=== PATIENT | male | born 1985 | race Caucasian/White ===

== ENCOUNTER 2017-05-07 21:41 | Emergency (ER) | payer MEDICAID ==
[~2017-05-07] VITALS: Ht 172.7 cm; Wt 123.0 kg
[2017-05-07] MEDS ORDERED: KETOROLAC 60MG/2ML VIAL IM ONE (22:00)
[2017-05-08 01:14] VITALS: BP 147/93
== END 2017-05-08 01:16 | disposition home or self-care (01) ==
LOC: ER 22:15
DX: M79.671 Pain in right foot (principal); M25.571 Pain in right ankle and joints of right foot
CPT/HCPCS: 73610; 73630; 96372; 99284; J1885

== ENCOUNTER 2018-02-05 12:58 | Emergency (ER) | payer MEDICAID, OTHER ==
[~2018-02-05] VITALS: Ht 172.7 cm; Wt 120.0 kg
[2018-02-05] MEDS ORDERED: DEXAMETHASONE 10 MG/ML VIAL IM ONE (15:00)
[2018-02-05] MEDS ORDERED: KETOROLAC 30MG/ML VIAL IM ONE (15:00)
[2018-02-05 17:00] VITALS: BP 144/88
== END 2018-02-05 17:00 | disposition home or self-care (01) ==
LOC: ER 12:58
DX: J02.9 Acute pharyngitis, unspecified (principal); J35.1 Hypertrophy of tonsils
CPT/HCPCS: 87070; 87430; 96372; 99283; J1100; J1885